=== PATIENT | female | born 1985 | race Caucasian/White ===

== ENCOUNTER 2017-04-17 00:02 | Emergency (ER) | payer MEDICAID ==
[~2017-04-17] VITALS: Ht 160 cm; Wt 69.1 kg
[~2017-04-17 00:02] MED LIST: ANTIBIOTIC; HYDR-3240 PO; IBUP800T PO; OXYC-302 PO
[2017-04-17 00:03] VITALS: BP 117/77
== END 2017-04-17 03:21 | disposition home or self-care (01) ==
LOC: ED 03:00
DX: J20.8 Acute bronchitis due to other specified organisms (principal); B96.89 Other specified bacterial agents as the cause of diseases classified elsewhere
CPT/HCPCS: 99283

== ENCOUNTER 2018-03-23 11:39 | Observation (INO) | payer MEDICAID ==
[~2018-03-23] VITALS: Ht 157.5 cm; Wt 73.1 kg
[~2018-03-23 11:39] MED LIST changes: +IBUP-1223 PO; -IBUP800T PO
[2018-03-23 12:56] LABS: BASOPHILS # (AUTO) 0.04 x10^3/uL (0-0.1); BASOPHILS % (AUTO) 0 % (0-1); EOSINOPHILS % (AUTO) 2 % (1-7); LYMPHOCYTES # (AUTO) 2.21 x10^3/uL (1-3.4); LYMPHOCYTES % (AUTO) 22 % (22-44); MD NO; MEAN CORPUSCULAR HEMOGLOBIN 30.9 pg (27.0-34.8); MEAN CORPUSCULAR HGB CONC 33.5 g/dL (32.4-35.8); MEAN CORPUSCULAR VOLUME 92.3 fL (80-100); MEAN PLATELET VOLUME 8.4 fL (7.4-10.4); MONOCYTES # (AUTO) 0.61 x10^3/uL (0.2-0.8); MONOCYTES % (AUTO) 6 % (2-9); NEUTROPHILS % (AUTO) 69 % (42-75); PLATELET COUNT 427 x10^3/uL (130-400); RED BLOOD COUNT 4.06 x10^6/uL (3.82-5.3); RED CELL DISTRIBUTION WIDTH 14.5 % (9.6-15.2)
[2018-03-23 13:04] LABS: ALANINE AMINOTRANSFERASE 17 U/L (12-78); ALBUMIN 3.9 g/dL (3.4-5.0); ANION GAP 5 mmol/L (5-15); CALCIUM 8.7 mg/dL (8.5-10.1); CHLORIDE 107 mmol/L (98-107); CREATININE 0.83 mg/dL (0.55-1.02)
[2018-03-23 13:11] LABS: ALKALINE PHOSPHATASE 54 U/L (45-117); BILIRUBIN,TOTAL 0.6 mg/dL (0.2-1.0); TOTAL PROTEIN 7.8 g/dL (6.4-8.2)
[2018-03-23] MEDS ORDERED: MORPHINE SULFATE 4 MG/ML, 1ML ONE ×2 (13:21→13:43)
[2018-03-23] MEDS ORDERED: morphine SULFATE 10 MG/ML, 1ML IVPush ONE (13:30)
[2018-03-23] MEDS ORDERED: MORPHINE SULFATE 4 MG/ML, 1ML IVPush ONE ×2 (13:30→14:00)
[2018-03-23] MEDS ORDERED: SODIUM CHLORIDE 0.9% 1,000ML IVBOLUS ONE (15:00)
[2018-03-23 15:38] LABS: MICROSCOPIC INDICATED
[2018-03-23 16:17] LABS: CULTURE INDICATED? NO
[2018-03-23] MEDS ORDERED: INTERCEED 3 X 4 INCH DRESSING ONE (16:20)
[2018-03-23] MEDS ORDERED: EPINEPHRINE 1 MG/ML, 1ML ONE (16:20)
[2018-03-23] MEDS ORDERED: BUPIVACAINE 0.25% ONE (16:20)
[2018-03-23] MEDS ORDERED: MIDAZOLAM 1 MG/ML, 2ML ONE (17:49)
[2018-03-23] MEDS ORDERED: FENTANYL PF 100 MCG/2ML ONE ×2 (17:49→20:18)
[2018-03-23] MEDS ORDERED: LIDOCAINE GEL 2%, 5ML ONE (17:49)
[2018-03-23] MEDS ORDERED: GLYCOPYRROLATE 0.2MG/1ML, 5ML ONE (18:54)
[2018-03-23] MEDS ORDERED: DEXAMETHASONE 4 MG/ML, 1ML ONE (18:54)
[2018-03-23] MEDS ORDERED: SUCCINYLCHOLINE 20 MG/ML, 10ML ONE (18:54)
[2018-03-23] MEDS ORDERED: ROCURONIUM 10MG/ML,5ML ONE (18:54)
[2018-03-23] MEDS ORDERED: NEOSTIGMINE 1 MG/ML, 10ML ONE (18:54)
[2018-03-23] MEDS ORDERED: CEFAZOLIN 1,000 MG ONE (18:54)
[2018-03-23] MEDS ORDERED: PROPOFOL 10 MG/ML, 20ML ONE (18:54)
[2018-03-23] MEDS ORDERED: ONDANSETRON 2MG/ML, 2ML ONE (18:54)
[2018-03-23] MEDS ORDERED: KETOROLAC 30 MG/1 ML ONE (19:11)
[2018-03-23] MEDS ORDERED: MORPHINE SULFATE 4 MG/ML, 1ML IVPush PRN (20:00)
[2018-03-23] MEDS ORDERED: ALBUTEROL/IPRATROPIUM 2.5MG/0.5MG, 3 ML NPPB PRN (20:00)
[2018-03-23] MEDS ORDERED: LORazepam 2 MG/ML, 1ML IVPush PRN (20:00)
[2018-03-23] MEDS ORDERED: METOCLOPRAMIDE 5 MG/ML, 2ML IV PRN (20:00)
[2018-03-23] MEDS ORDERED: PROMETHAZINE 25 MG/ML, 1ML IV PRN (20:00)
[2018-03-23] MEDS ORDERED: DIAZEPAM 5 MG/ML, 2ML IVPush PRN (20:00)
[2018-03-23] MEDS ORDERED: SCOPOLAMINE PATCH, 1.5MG PATCH.TD72 TD PRN (20:00)
[2018-03-23] MEDS ORDERED: ACETAMINOPHEN 325 MG TABLET PO PRN (20:00)
[2018-03-23] MEDS ORDERED: FENTANYL PF 100 MCG/2ML IV PRN (20:00)
[2018-03-23] MEDS ORDERED: EPHEDRINE 50 MG/ML, 1ML IM PRN (20:00)
[2018-03-23] MEDS ORDERED: OXYcodone 5 MG/5 ML ORAL.SOL UDC PO PRN (20:00)
[2018-03-23] MEDS ORDERED: LABETALOL 5MG/ML, 20ML IV PRN (20:00)
[2018-03-23] MEDS ORDERED: MIDAZOLAM 1 MG/ML, 2ML IV PRN (20:00)
[2018-03-23] MEDS ORDERED: ONDANSETRON ODT 8 MG PO PRN (20:00)
[2018-03-23] MEDS ORDERED: HYDROmorphone 1 MG/ML, 1ML IV PRN (20:00)
[2018-03-23] MEDS ORDERED: MEPERIDINE/PF 25MG/0.5ML IVPush PRN (20:00)
[2018-03-23] MEDS ORDERED: OXYcodone 5 MG/5 ML ORAL.SOL UDC ONE (20:18)
[2018-03-23] MEDS ORDERED: HYDROmorphone 2 MG/ML, 1ML ONE (20:18)
[2018-03-23] MEDS ORDERED: ACETAMINOPHEN 650 MG/20.3 ML UDC ONE (20:18)
[2018-03-23 21:48] VITALS: BP 108/68
[2018-03-23] MEDS ORDERED: LACTATED RINGERS 500 ML IVBOLUS ONE (22:00)
[2018-03-23] MEDS ORDERED: ONDANSETRON 2MG/ML, 2ML IVPush PRN (22:00)
[2018-03-23] MEDS ORDERED: OXYcodone/APAP 5/325MG TABLET PO PRN (22:00)
[2018-03-23] MEDS ORDERED: morphine SULFATE 10 MG/ML, 1ML IVPush PRN (22:00)
[2018-03-23] MEDS: LACTATED RINGERS 1,000 ML IV SCH (22:10)
[2018-03-23 23:25] VITALS: BP 106/70
[2018-03-24 04:12] VITALS: BP 122/68
[2018-03-24] MEDS: LACTATED RINGERS 1,000 ML IV SCH (07:59)
[2018-03-24 08:15] VITALS: BP 105/67
[2018-03-24] MEDS ORDERED: ACETAMINOPHEN 325 MG TABLET PO PRN (09:30)
[2018-03-24] MEDS ORDERED: OXYC-302 PO (09:33)
[2018-03-24] MEDS ORDERED: IBUP-1223 PO (09:34)
== END 2018-03-24 15:15 | disposition home or self-care (01) ==
LOC: ED 15:11 → EDIP 15:12 → ED 15:39 → 4NOR 21:20 → DCLOUNGE 03-24 14:53
PROVIDERS: ADMIT Obstetrics & Gynecology; ATTEND Obstetrics & Gynecology
DX: O00.102 Left tubal pregnancy without intrauterine pregnancy (principal); F17.200 Nicotine dependence, unspecified, uncomplicated; F12.90 Cannabis use, unspecified, uncomplicated; K66.1 Hemoperitoneum; K66.0 Peritoneal adhesions (postprocedural) (postinfection); Z86.32 Personal history of gestational diabetes; Z87.442 Personal history of urinary calculi; Z97.5 Presence of (intrauterine) contraceptive device
CPT/HCPCS: 36415; 59151; 76801; 80053; 81001; 84702; 84703; 85025; 86850; 86900; 88305; 93005; 96374; 96376; 99285; G0378; J0171; J0330; J1100; J1885; J2250; J2405; J2704; J2710; J3010; J3490; J7030; J7120; J0690

== ENCOUNTER 2020-02-04 19:22 | Emergency (ER) | payer MEDICAID, OTHER ==
[~2020-02-04] VITALS: Ht 157.5 cm; Wt 61.4 kg
--- NOTE | 2020-02-04 20:19 | NUR ---
PT RESTING COMFORTABLY. PD AT BEDSIDE.
--- NOTE | 2020-02-04 20:54 | NUR ---
PATIENT IN ROOM, NO NOTED ACUTE DISTRESS. TOLERATING INTERNVETIONS WELL. NO NOTED NEEDS AT THIS TIME. WILL AWAIT FOR FURTHER ORDERS. WILL CONTINUE TO MONITOR.
[2020-02-04 23:05] VITALS: BP 124/71
== END 2020-02-04 23:07 | disposition home or self-care (01) ==
LOC: ED 20:48
DX: S02.31XA Fracture of orbital floor, right side, initial encounter for closed fracture (principal); S02.831A Fracture of medial orbital wall, right side, initial encounter for closed fracture; S40.011A Contusion of right shoulder, initial encounter; H57.11 Ocular pain, right eye; R55 Syncope and collapse; R51 Headache; M25.511 Pain in right shoulder; F17.200 Nicotine dependence, unspecified, uncomplicated; Y08.89XA Assault by other specified means, initial encounter; Y93.89 Activity, other specified; Y92.410 Unspecified street and highway as the place of occurrence of the external cause; Y99.8 Other external cause status
CPT/HCPCS: 70450; 70486; 99285